=== PATIENT | male | born 1965 | race Caucasian/White ===

== ENCOUNTER 2017-06-24 20:37 | Emergency (ER) | payer SELFPAY ==
[~2017-06-24] VITALS: Ht 182.9 cm; Wt 81.8 kg
[~2017-06-24 20:37] MED LIST: 00186-0372-20 IH; PRIL40 PO; PROVENTIL0.09 MG/A1 IH
[2017-06-24 20:40] VITALS: BP 137/75; PULSE 86; TEMP 97.9
[2017-06-24 22:52] LABS: BASO # 0.1 (0.0-0.2); BASO % 0.8 % (0.0-2.0); EOS # 0.3 (0.0-0.7); EOS % 4.5 % (0-4.0); GRAN # 3.8 (1.4-6.5); GRAN % 58.5 % (42.2-75.2); HEMATOCRIT 42.9 % (42.0-52.0); HEMOGLOBIN 13.6 g/dl (13.5-18.0); LYMPH # 1.7 (1.2-3.4); LYMPH % 25.9 % (20.0-51.0); MEAN CELL VOLUME 93 fl (80.0-100.0); MEAN CORPUSCULAR HEMOGLOBIN 29 pg (27.0-31.0); MEAN CORPUSCULAR HGB CONC 32 g/dl (33.0-37.0); MEAN PLATELET VOLUME 8.6 fl (7.4-10.4); MONO # 0.7 (0.1-0.6); MONO % 10.1 % (1.7-9.3); PLATELET COUNT 191 K/mm3 (130-400); RED BLOOD COUNT 4.64 M/mm3 (4.20-5.60); REDCELL DISTRIBUTION WIDTH-CV 12.9 % (11.5-14.5)
[2017-06-24 23:15] LABS: ERYTHROCYTE SEDIMENTATION RATE 2 mm/hr (0-30)
[2017-06-24] MEDS ORDERED: MOBIC 7.5MG7.5 MG PO (23:44)
== END 2017-06-25 00:15 | disposition home or self-care (01) ==
LOC: COL.ER 20:37
PROVIDERS: Nurse Practitioner Primary Care
DX: M77.9 Enthesopathy, unspecified (principal); J44.9 Chronic obstructive pulmonary disease, unspecified; F17.210 Nicotine dependence, cigarettes, uncomplicated